=== PATIENT | male | born 1945 | race Caucasian/White ===

== ENCOUNTER 2016-09-23 10:10 | Observation (INO) ==
[2016-09-23] MEDS ORDERED: Ondansetron ODT 4 MG TAB.RAPDIS SL ONE (10:44)
--- NOTE | 2016-09-23 11:04 | Emergency Department Note ---
Disposition Clinical Impression: Vomiting, Ileus, Abdominal pain Disposition: Admitted As Inpatient Condition: Fair Referrals: Bo Eddy DO [Primary Care Provider] - Forms: ED Satisfaction Letter Time of Disposition: 14:30 (alistair bautista) Nausea/Vomiting/Diarrhea HPI - General Chief complaint: ED Nausea/Vomiting/Diarrhea Stated complaint: vomiting Time Seen by Provider: 09/23/16 10:17 Source: patient, family Mode of arrival: ambulatory Limitations: no limitations Nursing Notes Reviewed: Yes Vital Signs Reviewed: Yes - History of Present Illness HPI Narrative: he had an episode of diarrhea yesterday but has had nausea vomiting abdominal pain all day states that he is bloated distended feels very uncomfortable he is hard of hearing so it has if called were going to his to get most of the answers he has had no fevers no chills no lightheadedness or dizziness and denies any burning or stinging rash sores or lesions Pt Subjective Complaint: nausea, vomiting, abdominal pain Onset (ago): day(s) (1) Description of emesis: food contents Associated Abdominal Pain: Yes If pain, Location of pain: diffuse Radiation: diffuse Severity: moderate Severity scale (1-10): 4 Quality: cramping Consistency: intermittent Improves with: nothing Worsens with: eating Context: other (Due For colonoscopy) Associated symptoms: Reports: loss of appetite, malaise, nausea/vomiting. Denies: myalgias, chest pain, cough, diaphoresis, fever/chills, headaches, rash , dysuria, shortness of breath, syncope, weakness - Related Data Home Medications Medication Instructions Recorded Confirmed Atenolol 100 mg PO DAILY 08/30/15 08/18/16 CloNIDine HCl 0.1 mg PO BID 08/30/15 08/18/16 Esomeprazole Magnesium [Nexium] 40 mg PO QAM PRN 08/30/15 08/18/16 Losartan [Cozaar] 100 mg PO DAILY 08/30/15 08/18/16 Terazosin [Hytrin] 5 mg PO HS 08/30/15 08/18/16 Fluticasone/Salmeterol [Advair Hfa 2 puff IH BID 04/06/16 08/18/16 115-21 Mcg Inhaler] Gabapentin [Neurontin] 800 mg PO BID 04/06/16 08/18/16 Oxycodone HCl 5 mg PO Q6H PRN 04/06/16 08/18/16 Previous Rx's Medication Instructions Recorded PredniSONE [Deltasone] 20 mg PO DAILY #30 tablet 05/27/16 Allopurinol [Zyloprim] 100 mg PO DAILY #30 tablet 07/26/16 Phenytoin ER [Dilantin ER] 500 mg PO HS #150 capsule 07/26/16 Allergies Allergy/AdvReac Type Severity Reaction Status Date / Time No Known Allergies Allergy Verified 08/18/16 09:31 All systems ED: reviewed and negative except as stated. Constitutional: Reports: weakness. Denies: fever, chills Eyes: Denies: vision change ENT ED: Denies: ear pain, throat pain Cardiovascular: Denies: chest pain, palpitations Respiratory: Denies: cough, dyspnea Gastrointestinal: Reports: abdominal pain, nausea, vomiting Genitourinary: Denies: urgency, dysuria Musculoskeletal: Reports: back pain Integumentary: Denies: rash, abrasion Neurological: Reports: weakness. Denies: headache Psychiatric: Denies: anxiety Endocrine: Reports: fatigue Hematological/Lymphatic: Denies: easy bleeding Allergic/Immunologic: Denies: facial swelling Past Medical History - Past Medical History Attestation: Yes The following information was validated with the patient. Source: patient, old records reviewed, nursing notes reviewed Medical history: Reports: arthritis, cancer, COPD, GERD, hyperlipidemia, hypertension, RA, renal disease, seizures Surgical history: Reports: cancer surgery, orthopedic, other, other Psychiatric history: Reports: anxiety, depression - Social History Smoking Status: Former smoker Smokeless Tobacco Status: No Alcohol use: Reports: occasionally, heavy Drug use: Reports: none Physical Exam - General Limitations: no limitations General appearance: alert, in no apparent distress, anxious - Head Head exam: atraumatic, normocephalic, normal inspection - Eye Eye exam: Present: normal appearance, PERRL, EOMI - ENT ENT exam: normal exam, normal oropharynx, mucous membranes moist, TM's normal bilaterally, normal external ear exam - Neck Neck exam: Present: normal inspection, full ROM, trachea midline - Chest Chest inspection: Present: normal inspection, symmetric chest wall rise - Respiratory Respiratory exam: Present: normal lung sounds bilaterally - Cardiovascular Cardiovascular exam: Present: regular rate, normal rhythm, normal heart sounds - Abdominal Exam Abdominal exam: Present: soft, tenderness, distention, hypoactive bowel sounds. Absent: mass, pulsatile mass Abdominal tenderness: Present: diffuse, moderate - Expanded Upper Extremity Exam Shoulder exam: Present: normal inspection, full ROM Arm exam: Present: normal inspection, full ROM Elbow exam: Present: normal inspection, full ROM Forearm/Wrist exam: Present: normal inspection, full ROM Hand exam: Present: normal inspection, full ROM Vascular exam: Normal: capillary refill, radial pulse - Expanded Lower Extremity Exam Hip/Pelvis exam: Present: normal inspection, full ROM Upper leg exam: Present: normal inspection, full ROM Knee exam: Present: normal inspection, full ROM Lower leg exam: Present: normal inspection, full ROM Ankle exam: Present: normal inspection, full ROM Foot/toe exam: Present: normal inspection, full ROM Neurovascular/Tendon exam: Absent: motor deficit, sensory deficit, tendon deficit Gait: observed and normal - Back Exam Back exam: Present: normal inspection, full ROM. Absent: muscle spasm - Neurological Exam Neurological exam: Present: alert, oriented X3, CN II-XII intact, other ([place]) - Psychiatric Psychiatric exam: Present: normal affect, normal mood - Skin Skin exam: Present: warm, dry, intact, normal color Course Course Narrative: Patient was seen and examined patient was continuing to complain of abdominal epigastric pain cardiac workup was done we also did an abdominal workup which showed these got an ileus as a result patient be admitted transfer to the services of Dr. Tonny Steinberg [facility] paving stone installer for Dr. Calvillo - Reevaluation(s) Reevaluation #1: NG tube ordered Vital Signs Temperature 96.6 F L 09/23/16 10:12 Pulse Rate 85 09/23/16 10:12 Respiratory Rate 18 09/23/16 10:12 Blood Pressure 155/84 09/23/16 10:12 O2 Sat by Pulse Oximetry 98 09/23/16 10:12 Temperature 96.6 F L 09/23/16 10:14 Pulse Rate 75 09/23/16 15:30 Respiratory Rate 18 09/23/16 15:30 Blood Pressure 160/85 09/23/16 15:30 O2 Sat by Pulse Oximetry 97 09/23/16 15:30 Oxygen Delivery Oxygen Delivery Room Air Nausea/Vomiting/Diarrhea - Differential Diagnosis Likely: drug-induced nausea and vomitting, dehydration, bowel obstruction - Medical Records Medical records reviewed: Yes I reviewed the patient's medical records. - Lab Data Lab results reviewed: Yes I reviewed the patient's lab results. Result diagrams: 09/23/16 11:08 09/23/16 11:08 Lab Results 09/23/16 09/23/16 09/23/16 Range/Units 11:08 11:08 11:08 WBC 10.9 (4.3-11.1) K/mcL RBC 3.64 L (4.19-5.50) M/mcL Hgb 11.6 L (12.9-16.9) g/dL Hct 31.9 L (37.5-50.1) % MCV 87.6 (83.0-100.0) fL MCH 31.9 (28.0-33.3) pg MCHC 36.4 H (31.6-35.5) g/dL RDW 15.1 H (11.5-14.5) % Plt Count 162 (140-400) K/mcL MPV 10.1 (9.4-12.4) fL Immature Gran % 1.9 (0-4) % Seg Neutrophils % 72.7 % Lymphocytes % 13.4 % Monocytes % 10.5 % Eosinophils % 0.9 % Basophils % 0.6 % Neutrophils # 7.9 (1.6-8.9) K/mcL Lymphocytes # 1.5 (0.6-4.6) K/mcL Monocytes # 1.1 (0.0-1.3) K/mcL Eosinophils # 0.1 (0.0-0.6) K/mcL Basophils # 0.1 (0.0-0.2) K/mcL PT 11.7 (9.4-12.1) Seconds INR 1.1 APTT 25.6 L (26.0-36.0) Seconds Sodium 133 L (136-145) mEq/L Potassium 4.3 (3.5-4.5) mEq/L Chloride 100 (98-109) mEq/L Carbon Dioxide 22 (19-29) mEq/L BUN 15 (8-26) mg/dL Creatinine 1.21 (0.72-1.25) mg/dL Est GFR ( Amer) > 60 (> 60) Est GFR (Non-Af Amer) 59 L (> 60) BUN/Creatinine Ratio 12 (6-26) Glucose 114 H (70-99) mg/dL Calculated Osmolality 278 L (280-300) Calcium 8.9 (8.6-10.8) mg/dL Troponin I (0-0.03) ng/mL Urine Color (Yellow) Urine Clarity (Clear) Urine pH (5.0-8.0) pH Units Ur Specific [place] (1.010-1.025) Urine Protein (Neg-Trace) mg/dL Urine Glucose (UA) (Normal) mg/dL Urine Ketones (Negative) mg/dL Urine Blood (Negative) Urine Nitrite (Negative) Urine Bilirubin (Negative) Urine Urobilinogen (Normal) mg/dL Ur Leukocyte Esterase (Negative) Urine Microscopic RBC (0-3) per hpf Urine Microscopic WBC (0-3) per hpf Ur Squamous Epith Cells (None-Few) per lpf Hyaline Casts (None-Few) per lpf Granular Casts (None Seen) per lpf Urine Mucus (Few) Ur Culture Indicated? (NO) 09/23/16 09/23/16 Range/Units 11:08 13:40 WBC (4.3-11.1) K/mcL RBC (4.19-5.50) M/mcL Hgb (12.9-16.9) g/dL Hct (37.5-50.1) % MCV (83.0-100.0) fL MCH (28.0-33.3) pg MCHC (31.6-35.5) g/dL RDW (11.5-14.5) % Plt Count (140-400) K/mcL MPV (9.4-12.4) fL Immature Gran % (0-4) % Seg Neutrophils % % Lymphocytes % % Monocytes % % Eosinophils % % Basophils % % Neutrophils # (1.6-8.9) K/mcL Lymphocytes # (0.6-4.6) K/mcL Monocytes # (0.0-1.3) K/mcL Eosinophils # (0.0-0.6) K/mcL Basophils # (0.0-0.2) K/mcL PT (9.4-12.1) Seconds INR APTT (26.0-36.0) Seconds Sodium (136-145) mEq/L Potassium (3.5-4.5) mEq/L Chloride (98-109) mEq/L Carbon Dioxide (19-29) mEq/L BUN (8-26) mg/dL Creatinine (0.72-1.25) mg/dL Est GFR ( Amer) (> 60) Est GFR (Non-Af Amer) (> 60) BUN/Creatinine Ratio (6-26) Glucose (70-99) mg/dL Calculated Osmolality (280-300) Calcium (8.6-10.8) mg/dL Troponin I 0.01 (0-0.03) ng/mL Urine Color Yellow (Yellow) Urine Clarity Clear (Clear) Urine pH 6.0 (5.0-8.0) pH Units Ur Specific [place] 1.025 (1.010-1.025) Urine Protein 100 H (Neg-Trace) mg/dL Urine Glucose (UA) Normal (Normal) mg/dL Urine Ketones 15 H (Negative) mg/dL Urine Blood Trace-intact H (Negative) Urine Nitrite Negative (Negative) Urine Bilirubin Small H (Negative) Urine Urobilinogen Normal (Normal) mg/dL Ur Leukocyte Esterase Trace H (Negative) Urine Microscopic RBC 0-3 (0-3) per hpf Urine Microscopic WBC 5-15 H (0-3) per hpf Ur Squamous Epith Cells Few (None-Few) per lpf Hyaline Casts Moderate H (None-Few) per lpf Granular Casts Few H (None Seen) per lpf Urine Mucus Few (Few) Ur Culture Indicated? YES A (NO) - Radiology Data Radiology results reviewed: Yes I reviewed the patient's radiology results. ITS Impressions Chest X-Ray 09/23/16 10:44 IMPRESSION: No evidence of acute cardiopulmonary disease. D/ / Anup Coyne MD / Anup Coyne MD Interpreting Provider: Anup Coyne MD - EKG Data EKG attestation: Yes I reviewed and interpreted this EKG. EKG results narrative: Rhythm NSR Heart Rate 62 PA 171 QRS 101 QT 430 Axes 27 Critical Care Time Critical Care Time: No
[2016-09-23 11:16] LABS: Basophils # 0.1 K/mcL (0.0-0.2); Basophils % 0.6 %; Eosinophils # 0.1 K/mcL (0.0-0.6); Eosinophils % 0.9 %; Hematocrit 31.9 % (37.5-50.1); Hemoglobin 11.6 g/dL (12.9-16.9); Immature Granulocytes % 1.9 % (0-4); Lymphocytes # 1.5 K/mcL (0.6-4.6); Lymphocytes % 13.4 %; Mean Corpuscular HGB Conc 36.4 g/dL (31.6-35.5); Mean Corpuscular Hemoglobin 31.9 pg (28.0-33.3); Mean Corpuscular Volume 87.6 fL (83.0-100.0); Mean Platelet Volume 10.1 fL (9.4-12.4); Monocytes # 1.1 K/mcL (0.0-1.3); Monocytes % 10.5 %; Neutrophils # 7.9 K/mcL (1.6-8.9); Platelet Count 162 K/mcL (140-400); Red Blood Count 3.64 M/mcL (4.19-5.50); Red Cell Distribution Width 15.1 % (11.5-14.5); Segmented Neutrophils % 72.7 %
[2016-09-23 11:22] LABS: INR 1.1; Prothrombin Time 11.7 Seconds (9.4-12.1)
[2016-09-23 11:25] LABS: Activated Partial Thrombo Time 25.6 Seconds (26.0-36.0)
[2016-09-23 11:29] LABS: BUN/Creatinine Ratio 12 (6-26); Blood Urea Nitrogen 15 mg/dL (8-26); Calcium 8.9 mg/dL (8.6-10.8); Carbon Dioxide 22 mEq/L (19-29); Chloride 100 mEq/L (98-109); Glucose 114 mg/dL (70-99); Osmolality,Calculated 278 (280-300); Potassium 4.3 mEq/L (3.5-4.5); Sodium 133 mEq/L (136-145); eGFR For African Americans > 60 (> 60); eGFR For Non-African Americans 59 (> 60)
[2016-09-23] MEDS ORDERED: GI Cocktail 40 ML EACH PO ONE (12:04)
[2016-09-23 13:45] LABS: Bilirubin,Urine Small (Negative); Blood,Urine Trace-intact (Negative); Clarity,Urine Clear (Clear); Color,Urine Yellow (Yellow); Glucose,Urine (UA) Normal (Normal); Ketones,Urine 15 mg/dL (Negative); Leukocyte Esterase,Urine Trace (Negative); Nitrite,Urine Negative (Negative); Protein,Urine 100 mg/dL (Neg-Trace); Specific Gravity,Urine 1.025 (1.010-1.025); Urobilinogen,Urine Normal (Normal)
[2016-09-23 13:56] LABS: Granular Casts,Urine Few per lpf (None Seen); Hyaline Casts,Urine Moderate per lpf (None-Few); Mucus,Urine Few (Few); RBC,Urine 0-3 per hpf (0-3); Squamous Epithelial Cell,Urine Few per lpf (None-Few)
--- NOTE | 2016-09-23 16:06 | Electrocardiograph Report ---
[facility] Test Date: 2016-09-23 Pat Name: Christopher Clancy Department: [id number] Room: [facility] Gender: M Steel Buffer: [id number] : 1945 Requested By: Indira Montanez Order Number: [id number] Reading MD: Stacy Harmon Measurements Intervals [place] Rate: 62 P: 51 MD: 171 QRS: 27 QRSD: 101 T: 51 QT: 430 QTc: 436 Interpretive Statements SINUS RHYTHM POSSIBLE RIGHT VENTRICULAR CONDUCTION DELAY Electronically Signed On 09-23-16 16:05:17 EST by Stacy Harmon
[2016-09-23] MEDS ORDERED: Naloxone 0.4 MG/ML INJ IVP PRN (16:08)
[2016-09-23] MEDS ORDERED: *HR* Morphine 2 MG/ML SYRINGE IVP PRN (18:02)
[2016-09-23] MEDS ORDERED: Ketorolac 30 MG/ML VIAL IVP PRN (18:06)
[2016-09-23] MEDS: 0.9 % Sodium Chloride 1,000 ML IVC SCH (18:28)
[2016-09-23] MEDS ORDERED: Tetracaine/Benzocaine/Butamben 200MG/SPRAY (100SPY/BOT) MM ONE (20:36)
[2016-09-23] MEDS ORDERED: Lidocaine Viscous Oral Soln 15 ML SOLUTION MM PRN (20:50)
[2016-09-23] MEDS: Budesonide/Formoterol 80/4.5 MDI IH SCH (22:19)
[2016-09-24] MEDS ORDERED: Ketorolac 30 MG/ML VIAL IVP SCH
[2016-09-24] MEDS: 0.9 % Sodium Chloride 1,000 ML IVC SCH ×2 (03:28→13:37)
[2016-09-24 06:54] LABS: Basophils % 0.4 %; Eosinophils # 0.1 K/mcL (0.0-0.6); Eosinophils % 0.6 %; Hematocrit 29.8 % (37.5-50.1); Hemoglobin 10.6 g/dL (12.9-16.9); Immature Granulocytes % 1.6 % (0-4); Lymphocytes # 2.7 K/mcL (0.6-4.6); Lymphocytes % 24.5 %; Mean Corpuscular HGB Conc 35.6 g/dL (31.6-35.5); Mean Corpuscular Hemoglobin 31.7 pg (28.0-33.3); Mean Corpuscular Volume 89.2 fL (83.0-100.0); Mean Platelet Volume 11.1 fL (9.4-12.4); Neutrophils # 7.2 K/mcL (1.6-8.9); Platelet Count 165 K/mcL (140-400); Red Blood Count 3.34 M/mcL (4.19-5.50); Red Cell Distribution Width 14.9 % (11.5-14.5); Segmented Neutrophils % 63.9 %
[2016-09-24 06:56] LABS: INR 1.1; Prothrombin Time 11.6 Seconds (9.4-12.1)
[2016-09-24 06:58] LABS: Activated Partial Thrombo Time 25.2 Seconds (26.0-36.0)
[2016-09-24 07:05] LABS: BUN/Creatinine Ratio 16 (6-26); Blood Urea Nitrogen 19 mg/dL (8-26); Calcium 8.7 mg/dL (8.6-10.8); Carbon Dioxide 19 mEq/L (19-29); Chloride 105 mEq/L (98-109); Glucose 99 mg/dL (70-99); Osmolality,Calculated 286 (280-300); Potassium 4.1 mEq/L (3.5-4.5); Sodium 137 mEq/L (136-145); eGFR For African Americans > 60 (> 60); eGFR For Non-African Americans 60 (> 60)
[2016-09-24] MEDS ORDERED: PredniSONE 20 MG TABLET PO SCH (09:00)
[2016-09-24] MEDS: Budesonide/Formoterol 80/4.5 MDI IH SCH (09:10)
[2016-09-24 15:11] VITALS: BP 162/86
--- NOTE | 2016-09-24 15:17 | Internal Med History&Physical ---
Date of Encounter: 09/24/16 Time of Encounter: 15:14 Assessment and Plan (1) Ileus Current visit: Yes Status: Acute Today's KUB showed no obstruction which is an improvement from the ileus shown yesterday with advance his diet clear liquids if he tolerates that he can go home (2) Vomiting Current visit: Yes Status: Acute no current vomiting Qualifiers: Vomiting type: unspecified Vomiting Intractability: unspecified Nausea presence: with nausea Qualified Code(s): R11.2 - Nausea with vomiting, unspecified (3) Anemia Current visit: No Status: Chronic Hemoglobin dropped from 11.6-10.6 probably dilutional Qualifiers: Anemia type: unspecified type Qualified Code(s): D64.9 - Anemia, unspecified (4) High blood pressure Current visit: No Status: Chronic Blood pressures stable Qualifiers: Hypertension type: essential hypertension Qualified Code(s): I10 - Essential (primary) hypertension (5) Seizure Current visit: No Status: Chronic No seizure activity by do recommend he does not use alcohol or caffeine Internal Medicine - H&P: HPI Chief complaint: Nausea and vomiting Admitted From: Emergency Dept Plans for Post Hospital Care: Home History of present illness: Mr. Clancy is a 70 year old male presented to emergency room after a decreased appetite for 7 days and stopped eating and drinking for 3 days became concerned about to the ER. He has hard hearing apparently 10%. Information was obtained mainly from his noted he did answer some questions. He reports having no BM in 3 days he felt weak and fatigued he has had sharp chest pain comes and goes his a little more short of breath continues to have tinnitus in his ears and ongoing. He had some nausea and vomiting and some diarrhea. He did not notice any blood in his ureter stool but he did notice leading when he had an NG tube down. It was going down his back of his throat and gag and took NG tube out. He was in the emergency room by Dr. Indira Montanez and the workup showed only dilated loops of small bowel which is consistent with ileus. He was admitted for IV hydration, NG tube, nothing by mouth. I saw him the next day and his repeat KUB came back with no obstruction. His white count was slightly up at 11.2 hemoglobin was slightly down 10.6. Urine culture came back no growth. Currently he has no nausea vomiting chest pain is usual shortness of breath no blood in his stool rest review of systems negative answers questions and addressed his concerns the plan is if he can tolerate fluids and he can be discharged night if he cannot will have to make him nothing by mouth and keep him here. Past Med Surg Social Fam HX - Past Medical History Medical history: arthritis, cancer (Vocal cords, treated with radiation but no surgery), COPD, GERD, hyperlipidemia, hypertension, RA, renal disease, seizures , other (Heart appearing about 10% remaining, lumbar fracture history, ventral hernias) Psychiatric history: anxiety, depression - Past Surgical History Surgical History: orthopedic, other (Plates in his lumbar area) - Social History Smoking Status: Former smoker (About a 40 pack year history quit to 4 years ago recommended consider lung cancer screening and he now has a program for that) Smokeless Tobacco Status: No Alcohol use: occasionally (Recommend no alcohol since he has seizure disorder, he drinks about 2-3 beer a day episodically), heavy Drug use: other (2 cups of coffee a day, insert caffeine use) - Family History Father Adopted: No Family Member Ethnicity: Non- Living Status: (Pneumonia) Hx Family Cancer: Yes (Pancreatic Cancer) Mother Adopted: No Family Member Ethnicity: Non- Living Status: (Pancreatic cancer) Internal Medicine - H&P: Meds Atenolol 100 mg PO DAILY 08/30/15 [History] CloNIDine HCl 0.1 mg PO BID 08/30/15 [History] Esomeprazole Magnesium [Nexium] 40 mg PO QAM PRN 08/30/15 [History] Losartan [Cozaar] 100 mg PO DAILY 08/30/15 [History] Terazosin [Hytrin] 5 mg PO HS 08/30/15 [History] Fluticasone/Salmeterol [Advair Hfa 115-21 Mcg Inhaler] 2 puff IH BID 04/06/16 [ History] Gabapentin [Neurontin] 800 mg PO BID 04/06/16 [History] Oxycodone HCl 5 mg PO Q6H PRN 04/06/16 [History] PredniSONE [Deltasone] 20 mg PO DAILY #30 tablet 05/27/16 [Rx] Allopurinol [Zyloprim] 100 mg PO DAILY #30 tablet 07/26/16 [Rx] Phenytoin ER [Dilantin ER] 500 mg PO HS #150 capsule 07/26/16 [Rx] Allergies No Known Allergies Allergy (Verified 08/18/16 09:31) All Systems PM: A 10-system review of systems was performed and is negative for pertinent findings except as documented above in the HPI. - Constitutional Vitals: Temp Pulse Resp BP Pulse Ox 97.4 F L 84 16 162/86 98 09/24/16 15:08 09/24/16 15:08 09/24/16 15:08 09/24/16 15:08 09/24/16 15:08 - Head Head exam: Present: atraumatic, normocephalic - Eye Eye exam: Present: PERRL, conjuntiva pink, sclera anicteric Pupils: Present: PERRL - Neck Neck exam general surgery: Present: supple, trachea midline. Absent: lymphadenopathy - Respiratory Respiratory exam: Present: CTAB. Absent: accessory muscle use, rales, rhonchi, wheezes - Cardiovascular Cardiovascular exam: Present: RRR, +S1, +S2. Absent: diastolic murmur, gallop, rubs, systolic murmur - GI/Abdominal GI/Abdominal exam: Present: normal bowel sounds, soft, no peritoneal signs. Absent: distended, tenderness - Extremities Exam Extremities exam: Present: warm. Absent: calf tenderness, cyanotic, pedal edema - Neurological Exam Neurological exam: Present: CN II-XII intact, oriented X3, no focal deficits. Absent: pronater drift, facial droop, speech deficit - Skin Skin exam: Present: dry, intact Internal Med - H&P Results - Labs CBC & Chem 7: 09/24/16 06:30 09/24/16 06:30 Labs: Short CBC 09/24/16 Range/Units 06:30 WBC 11.2 H (4.3-11.1) K/mcL Hgb 10.6 L (12.9-16.9) g/dL Hct 29.8 L (37.5-50.1) % Plt Count 165 (140-400) K/mcL Neutrophils # 7.2 (1.6-8.9) K/mcL BMP 09/24/16 06:30 Sodium 137 Potassium 4.1 Chloride 105 Carbon Dioxide 19 BUN 19 Creatinine 1.20 Glucose 99 Calcium 8.7 - Impressions ITS Impressions Abdomen X-Ray 09/24/16 08:00 IMPRESSION: No evidence of bowel obstruction. D/ / 09/24/2016 08:29:03 Jagdish Haider MD / jacqui Interpreting Provider: Jagdish Haider MD
--- NOTE | 2016-09-24 16:21 | Discharge Summary ---
Date of Encounter: 09/24/16 Time of Encounter: 16:04 - Discharge Diagnosis (1) Ileus Priority: Primary Status: Acute Comments: Ileus has resolved patient tolerating liquids, wanting and ready to go home (2) Vomiting Priority: Primary Status: Acute Comments: No current vomiting Qualifiers: Vomiting type: unspecified Vomiting Intractability: unspecified Nausea presence: with nausea Qualified Code(s): R11.2 - Nausea with vomiting, unspecified (3) Anemia Priority: Secondary Status: Chronic Comments: Shelbi globin Dropped a little bit as probably delusional Qualifiers: Anemia type: unspecified type Qualified Code(s): D64.9 - Anemia, unspecified (4) High blood pressure Priority: Secondary Status: Chronic Comments: Stable on the hospital Qualifiers: Hypertension type: essential hypertension Qualified Code(s): I10 - Essential (primary) hypertension (5) Seizure Priority: Secondary Status: Chronic Comments: No seizure activity while in the hospital - Discharge Medications Home Medications: Atenolol 100 mg PO DAILY 08/30/15 [History] CloNIDine HCl 0.1 mg PO BID 08/30/15 [History] Esomeprazole Magnesium [Nexium] 40 mg PO QAM PRN 08/30/15 [History] Losartan [Cozaar] 100 mg PO DAILY 08/30/15 [History] Terazosin [Hytrin] 5 mg PO HS 08/30/15 [History] Fluticasone/Salmeterol [Advair Hfa 115-21 Mcg Inhaler] 2 puff IH BID 04/06/16 [ History] Gabapentin [Neurontin] 800 mg PO BID 04/06/16 [History] Oxycodone HCl 5 mg PO Q6H PRN 04/06/16 [History] PredniSONE [Deltasone] 20 mg PO DAILY #30 tablet 05/27/16 [Rx] Allopurinol [Zyloprim] 100 mg PO DAILY #30 tablet 07/26/16 [Rx] Phenytoin ER [Dilantin ER] 500 mg PO HS #150 capsule 07/26/16 [Rx] Allergies/Adverse Reactions: Allergies No Known Allergies Allergy (Verified 08/18/16 09:31) Date of admission: 09/23/16 15:55 Primary care physician: Bo Eddy Discharging clinician: Tonny Taylor date of discharge: 09/24/16 - Patient Status Disposition: Home, Self-Care Condition: Fair Functional capacity at discharge: independent ambulation Overall status at discharge: patient is back to baseline - Discharge Instructions Follow Up With: Bo Eddy DO [Primary Care Provider] - 1 week - Diet and Activity Activity: resume usual activities as tolerated Diet: advance to your usual diet Hospital course: Mr. Clancy is a 70 year old male presents to emergency room with 7 days and premature eating or drinking for 3 days. Found to have a mild ileus and was put on IV hydration and nothing by mouth, NG tube was put down by he removed it because nose bleeding was gagging him. The KUB showed that his ileus had resolved he was able tolerate fluids before discharge. She had no chest pain shortness breath for discharge to his questions were answered concerns addressed - Time Spent with Patient Total time spent providing and/or coordinating discharge services: Greater than 30 minutes - Constitutional Vitals: Temp Pulse Resp BP Pulse Ox 97.4 F L 84 16 162/86 98 09/24/16 15:08 09/24/16 15:08 09/24/16 15:08 09/24/16 15:08 09/24/16 15:08 Exam: General: Alert and oriented, no acute distress Lungs: Clear to auscultation bilaterally without wheezing or crackles Heart: Regular rate and rythms without murmer or rubs Abdomen: Soft, nontender, Extremities: no edema, redness
== END 2016-09-24 16:58 | disposition home or self-care (01) ==
LOC: INPPIK 10:10 → EMEROOPIK 10:10 → INPPIK 16:11
PROVIDERS: ADMIT Internal Medicine; ATTEND Internal Medicine

== ENCOUNTER 2019-06-16 09:50 | Observation (INO) ==
[2019-06-16] MEDS ORDERED: 0.9 % Sodium Chloride 1,000 ML IVC ONE (10:12)
[2019-06-16 10:57] LABS: Basophils % 0.3 %; Eosinophils # 0.1 K/mcL (0.0-0.6); Eosinophils % 0.6 %; Hematocrit 31.3 % (37.5-50.1); Hemoglobin 10.8 g/dL (12.9-16.9); Immature Granulocytes % 3.3 % (0-4); Lymphocytes # 1.3 K/mcL (0.6-4.6); Lymphocytes % 10.5 %; Mean Corpuscular HGB Conc 34.5 g/dL (31.6-35.5); Mean Corpuscular Hemoglobin 31.4 pg (28.0-33.3); Mean Platelet Volume 10.2 fL (9.4-12.4); Monocytes # 1.5 K/mcL (0.0-1.3); Neutrophils # 9.2 K/mcL (1.6-8.9); Platelet Count 168 K/mcL (140-400); Red Blood Count 3.44 M/mcL (4.19-5.50); Red Cell Distribution Width 15.8 % (11.5-14.5); Segmented Neutrophils % 73.3 %; White Blood Count 12.5 K/mcL (4.3-11.1)
[2019-06-16 11:26] LABS: Bilirubin,Urine Negative (Negative); Blood,Urine Trace-intact (Negative); Clarity,Urine Clear (Clear); Glucose,Urine (UA) Normal (Normal); Ketones,Urine Negative (Negative); Leukocyte Esterase,Urine Negative (Negative); Nitrite,Urine Negative (Negative); Protein,Urine Negative (Neg-Trace); Urobilinogen,Urine Normal (Normal)
[2019-06-16 11:27] LABS: Color,Urine Light Yellow (Yellow)
[2019-06-16] MEDS ORDERED: *HR* LORazepam 2 MG/ML VIAL ONE (11:30)
[2019-06-16 11:36] LABS: Bacteria,Urine None Seen per hpf (None-Few); RBC,Urine 0-3 per hpf (0-3); Squamous Epithelial Cell,Urine Few per lpf (None-Few)
[2019-06-16] MEDS ORDERED: *HR* LORazepam 2 MG/ML VIAL IVP ONE ×2 (12:03→14:27)
[2019-06-16 12:05] LABS: Alanine Aminotransferase 9 Units/L (7-52); Albumin 3.9 g/dL (3.5-5.7); Albumin/Globulin Ratio 1.4 (1.1-2.2); Alkaline Phosphatase 70 Units/L (34-104); Aspartate Amino Transferase 11 Units/L (13-39); BUN/Creatinine Ratio 12 (6-26); Bilirubin,Direct 0.2 mg/dL (0.0-0.2); Bilirubin,Indirect 0.5 mg/dL (0.0-1.2); Bilirubin,Total 0.7 mg/dL (0.3-1.0); Blood Urea Nitrogen 15 mg/dL (8-23); Calcium 8.9 mg/dL (8.6-10.3); Carbon Dioxide 25 mEq/L (23-29); Chloride 97 mEq/L (98-107); Globulin 2.8 g/dL (2.4-3.5); Glucose 131 mg/dL (70-105); Osmolality,Calculated 277 (280-300); Potassium 3.9 mEq/L (3.5-5.1); Sodium 132 mEq/L (136-145); Total Protein 6.7 g/dL (6.4-8.9); eGFR For African Americans > 60 (> 60); eGFR For Non-African Americans 58 (> 60)
[2019-06-16] MEDS ORDERED: Albuterol 2.5 MG/3 ML NEBULIZER IH PRN (15:15)
[2019-06-16] MEDS ORDERED: 0.9 % Sodium Chloride 1,000 ML IVC SCH (15:15)
[2019-06-16] MEDS ORDERED: Naloxone 0.4 MG/ML INJ IVP PRN (15:15)
[2019-06-16] MEDS ORDERED: Ondansetron ODT 4 MG TAB.RAPDIS SL PRN (18:00)
[2019-06-16] MEDS: Gabapentin 300 MG CAPSULE PO SCH ×2 (18:16→20:42)
[2019-06-16] MEDS: 0.9 % Sodium Chloride w KCl 20 MEQ/1,000 ML MLS IVC SCH (18:48)
[2019-06-16] MEDS: cloNIDine HCl 0.1 MG TABLET PO SCH (20:42)
[2019-06-16] MEDS: levETIRAcetam 250 MG TABLET PO SCH (20:43)
[2019-06-16] MEDS: *HR* LORazepam 2 MG/ML VIAL IVP PRN (20:53)
[2019-06-16] MEDS: Neosporin OINT 15 GM TUBE TP SCH (20:53)
[2019-06-16] MEDS: Budesonide/Formoterol 80/4.5 1 PUFF INH IH SCH (21:22)
[2019-06-16] MEDS ORDERED: *HR* Metoprolol 5 MG/5 ML VIAL IVP ONE (22:03)
[2019-06-17] MEDS ORDERED: *HR* Metoprolol 5 MG/5 ML VIAL IVP ONE (05:23)
[2019-06-17] MEDS: 0.9 % Sodium Chloride w KCl 20 MEQ/1,000 ML MLS IVC SCH (05:58)
[2019-06-17] MEDS ORDERED: *HR* Enoxaparin 40 MG/0.4 ML SYRINGE SQ SCH (06:00)
[2019-06-17 07:39] LABS: Basophils # 0.1 K/mcL (0.0-0.2); Basophils % 0.3 %; Eosinophils # 0.1 K/mcL (0.0-0.6); Eosinophils % 0.3 %; Hematocrit 30.3 % (37.5-50.1); Hemoglobin 10.6 g/dL (12.9-16.9); Immature Granulocytes % 2.3 % (0-4); Lymphocytes # 1.4 K/mcL (0.6-4.6); Lymphocytes % 9.2 %; Mean Corpuscular Hemoglobin 31.6 pg (28.0-33.3); Mean Corpuscular Volume 90.4 fL (83.0-100.0); Mean Platelet Volume 10.7 fL (9.4-12.4); Monocytes # 1.9 K/mcL (0.0-1.3); Monocytes % 12.7 %; Neutrophils # 11.4 K/mcL (1.6-8.9); Platelet Count 180 K/mcL (140-400); Red Blood Count 3.35 M/mcL (4.19-5.50); Red Cell Distribution Width 15.7 % (11.5-14.5); Segmented Neutrophils % 75.2 %; White Blood Count 15.1 K/mcL (4.3-11.1)
[2019-06-17] MEDS: levETIRAcetam 250 MG TABLET PO SCH (07:57)
[2019-06-17] MEDS: Gabapentin 300 MG CAPSULE PO SCH (07:58)
[2019-06-17] MEDS: cloNIDine HCl 0.1 MG TABLET PO SCH (07:58)
[2019-06-17] MEDS: *HR* LORazepam 2 MG/ML VIAL IVP PRN (07:58)
[2019-06-17] MEDS: Neosporin OINT 15 GM TUBE TP SCH (07:59)
[2019-06-17 08:48] LABS: BUN/Creatinine Ratio 11 (6-26); Blood Urea Nitrogen 13 mg/dL (8-23); Calcium 8.6 mg/dL (8.6-10.3); Carbon Dioxide 21 mEq/L (23-29); Chloride 99 mEq/L (98-107); Glucose 108 mg/dL (70-105); Osmolality,Calculated 273 (280-300); Potassium 3.8 mEq/L (3.5-5.1); Sodium 131 mEq/L (136-145); eGFR For African Americans > 60 (> 60); eGFR For Non-African Americans > 60 (> 60)
[2019-06-17] MEDS ORDERED: Famotidine 20 MG TABLET PO SCH (09:00)
[2019-06-17 09:48] VITALS: BP 121/73
[2019-06-17] MEDS ORDERED: FLU Vac QV 19-20 (6Month+)/PF 0.5 ML SYRINGE IM ONE (09:55)
[2019-06-17] MEDS: Budesonide/Formoterol 80/4.5 1 PUFF INH IH SCH (10:00)
== END 2019-06-17 11:26 | disposition home or self-care (01) ==
LOC: INPPIK 09:50 → EMEROOPIK 09:50 → INPPIK 15:46
PROVIDERS: ADMIT Internal Medicine; ATTEND Internal Medicine

== ENCOUNTER 2020-10-30 13:20 | Inpatient (IN) ==
[2020-10-30] MEDS ORDERED: 0.9 % Sodium Chloride 1,000 ML IVC ONE (13:48)
[2020-10-30] MEDS ORDERED: Ondansetron 4 MG/2 ML VIAL IVP ONE (13:48)
[2020-10-30 14:21] LABS: Basophils % 0.3 %; Eosinophils # 0.1 K/mcL (0.0-0.6); Eosinophils % 0.8 %; Hematocrit 24.2 % (37.5-50.1); Hemoglobin 8.4 g/dL (12.9-16.9); Immature Granulocytes % 1.5 % (0-4); Lymphocytes # 1.3 K/mcL (0.6-4.6); Mean Corpuscular HGB Conc 34.7 g/dL (31.6-35.5); Mean Corpuscular Hemoglobin 30.1 pg (28.0-33.3); Mean Corpuscular Volume 86.7 fL (83.0-100.0); Mean Platelet Volume 10.1 fL (9.4-12.4); Monocytes # 0.8 K/mcL (0.0-1.3); Monocytes % 9.7 %; Neutrophils # 6.3 K/mcL (1.6-8.9); Platelet Count 304 K/mcL (140-400); Red Blood Count 2.79 M/mcL (4.19-5.50); Red Cell Distribution Width 15.4 % (11.5-14.5); Segmented Neutrophils % 72.7 %; White Blood Count 8.7 K/mcL (4.3-11.1)
[2020-10-30 14:28] LABS: VBG HCO3 21 mEq/L (21-27); VBG PCO2 41 mmHg (41-51); VBG PH 7.32 pH Units (7.32-7.42); VBG PO2 31 mmHg (25-50)
[2020-10-30 14:48] LABS: Alanine Aminotransferase 7 Units/L (7-52); Albumin 3.8 g/dL (3.5-5.7); Albumin/Globulin Ratio 1.2 (1.1-2.2); Alkaline Phosphatase 81 Units/L (34-104); Aspartate Amino Transferase 10 Units/L (13-39); BUN/Creatinine Ratio 7 (6-26); Bilirubin,Direct 0.1 mg/dL (0.0-0.2); Bilirubin,Indirect 0.5 mg/dL (0.0-1.0); Bilirubin,Total 0.6 mg/dL (0.3-1.0); Blood Urea Nitrogen 10 mg/dL (8-23); Calcium 9.1 mg/dL (8.6-10.3); Carbon Dioxide 21 mEq/L (23-29); Chloride 92 mEq/L (98-107); Globulin 3.1 g/dL (2.4-3.5); Glucose 113 mg/dL (70-105); Lipase 53 Units/L (11-82); Osmolality,Calculated 260 (280-300); Potassium 4.3 mEq/L (3.5-5.1); Sodium 125 mEq/L (136-145); Total Protein 6.9 g/dL (6.4-8.9); Troponin I < 0.03 ng/mL (< 0.04); eGFR For African Americans 56 (> 60); eGFR For Non-African Americans 46 (> 60)
[2020-10-30] MEDS ORDERED: Azithromycin 500 MG in 0.9 % Sodium Chloride 250 ML IVPB ONE (14:54)
[2020-10-30] MEDS ORDERED: Acetaminophen 325 MG TABLET PO PRN (17:43)
[2020-10-30] MEDS ORDERED: MOM Conc 10 ML UD.LIQ PO PRN (17:43)
[2020-10-30] MEDS ORDERED: Ondansetron 4 MG/2 ML VIAL IVP PRN (17:43)
[2020-10-30] MEDS ORDERED: Mag Hydrox/Al Hydrox/Simeth 30 ML UDC PO PRN (17:43)
[2020-10-30] MEDS ORDERED: Naloxone 0.4 MG/ML INJ IVP PRN (17:43)
[2020-10-30] MEDS ORDERED: Melatonin 3 MG TABLET PO PRN (17:43)
[2020-10-30] MEDS: 0.9 % Sodium Chloride 1,000 ML IVC SCH (18:49)
[2020-10-30] MEDS: cloNIDine HCL 0.1 MG TABLET PO SCH (18:49)
[2020-10-30] MEDS: Gabapentin 400 MG CAPSULE PO SCH (19:36)
[2020-10-30] MEDS: Famotidine 20 MG TABLET PO SCH (19:36)
[2020-10-30] MEDS: levETIRAcetam 250 MG TABLET PO SCH (19:36)
[2020-10-30] MEDS: Ipratropium/Albuterol Neb 3 ML IH SCH (21:47)
[2020-10-30] MEDS: Budesonide/Formoterol 80/4.5 1 PUFF INH IH SCH (21:47)
[2020-10-30] MEDS: MethylPREDNISolone 40 MG/ML VIAL IVP SCH (23:33)
[2020-10-30] MEDS: Piperacillin/Tazobactam 3.375 GM in 0.9 % Sodium Chloride Mini Bag 100 ML IVPB SCH (23:34)
[2020-10-31] MEDS: cloNIDine HCL 0.1 MG TABLET PO SCH ×3 (02:29→17:59)
[2020-10-31] MEDS: Ipratropium/Albuterol Neb 3 ML IH SCH ×4 (04:25→21:43)
[2020-10-31] MEDS ORDERED: *HR* Enoxaparin 30 MG/0.3 ML SYRINGE SQ SCH (06:00)
[2020-10-31] MEDS: 0.9 % Sodium Chloride 1,000 ML IVC SCH (06:04)
[2020-10-31 06:51] LABS: Basophils % 0.4 %; Hematocrit 21.2 % (37.5-50.1); Hemoglobin 7.2 g/dL (12.9-16.9); Immature Granulocytes % 1.6 % (0-4); Lymphocytes # 0.4 K/mcL (0.6-4.6); Lymphocytes % 8.4 %; Mean Corpuscular Hemoglobin 30.3 pg (28.0-33.3); Mean Corpuscular Volume 89.1 fL (83.0-100.0); Mean Platelet Volume 9.8 fL (9.4-12.4); Monocytes # 0.1 K/mcL (0.0-1.3); Monocytes % 1.6 %; Neutrophils # 4.4 K/mcL (1.6-8.9); Platelet Count 244 K/mcL (140-400); Red Blood Count 2.38 M/mcL (4.19-5.50); Red Cell Distribution Width 15.8 % (11.5-14.5)
[2020-10-31 07:14] LABS: BUN/Creatinine Ratio 8 (6-26); Blood Urea Nitrogen 11 mg/dL (8-23); Calcium 8.2 mg/dL (8.6-10.3); Carbon Dioxide 19 mEq/L (23-29); Chloride 98 mEq/L (98-107); Glucose 129 mg/dL (70-105); Osmolality,Calculated 265 (280-300); Potassium 4.7 mEq/L (3.5-5.1); Sodium 127 mEq/L (136-145); eGFR For African Americans > 60 (> 60); eGFR For Non-African Americans 50 (> 60)
[2020-10-31] MEDS: Piperacillin/Tazobactam 3.375 GM in 0.9 % Sodium Chloride Mini Bag 100 ML IVPB SCH ×2 (08:42→16:44)
[2020-10-31] MEDS: levETIRAcetam 250 MG TABLET PO SCH ×2 (08:45→21:05)
[2020-10-31] MEDS: atenoloL 50 MG TABLET PO SCH (08:45)
[2020-10-31] MEDS: Gabapentin 400 MG CAPSULE PO SCH ×3 (08:45→21:06)
[2020-10-31] MEDS: MethylPREDNISolone 40 MG/ML VIAL IVP SCH ×2 (08:45→21:06)
[2020-10-31] MEDS: Budesonide/Formoterol 80/4.5 1 PUFF INH IH SCH ×2 (09:44→21:42)
[2020-10-31] MEDS: Famotidine 20 MG TABLET PO SCH (21:06)
[2020-11-01] MEDS: Piperacillin/Tazobactam 3.375 GM in 0.9 % Sodium Chloride Mini Bag 100 ML IVPB SCH ×3 (00:19→17:10)
[2020-11-01] MEDS: cloNIDine HCL 0.1 MG TABLET PO SCH ×3 (02:14→16:46)
[2020-11-01] MEDS: Ipratropium/Albuterol Neb 3 ML IH SCH ×4 (04:42→22:30)
[2020-11-01] MEDS ORDERED: *HR* Enoxaparin 40 MG/0.4 ML SYRINGE SQ SCH (06:00)
[2020-11-01 08:05] LABS: Basophils % 0.3 %; Hematocrit 18.8 % (37.5-50.1); Hemoglobin 6.4 g/dL (12.9-16.9); Immature Granulocytes % 2.2 % (0-4); Lymphocytes # 0.5 K/mcL (0.6-4.6); Mean Corpuscular Hemoglobin 30.5 pg (28.0-33.3); Mean Corpuscular Volume 89.5 fL (83.0-100.0); Mean Platelet Volume 9.9 fL (9.4-12.4); Monocytes # 0.2 K/mcL (0.0-1.3); Monocytes % 3.8 %; Neutrophils # 5.5 K/mcL (1.6-8.9); Platelet Count 202 K/mcL (140-400); Red Cell Distribution Width 15.4 % (11.5-14.5); Segmented Neutrophils % 85.7 %; White Blood Count 6.4 K/mcL (4.3-11.1)
[2020-11-01 08:21] LABS: Calcium 8.5 mg/dL (8.6-10.3); Potassium 4.2 mEq/L (3.5-5.1)
[2020-11-01] MEDS: MethylPREDNISolone 40 MG/ML VIAL IVP SCH ×2 (09:08→20:49)
[2020-11-01] MEDS: atenoloL 50 MG TABLET PO SCH (09:08)
[2020-11-01] MEDS: Gabapentin 400 MG CAPSULE PO SCH ×3 (09:08→20:48)
[2020-11-01] MEDS: levETIRAcetam 250 MG TABLET PO SCH ×2 (09:08→20:48)
[2020-11-01] MEDS ORDERED: 0.9 % Sodium Chloride 250 ML IVC SCH (09:15)
[2020-11-01] MEDS: Budesonide/Formoterol 80/4.5 1 PUFF INH IH SCH ×2 (09:22→22:30)
[2020-11-01] MEDS ORDERED: *HR* LORazepam 2 MG/ML VIAL IVP PRN ×2 (16:27→18:22)
[2020-11-01] MEDS: *HR* LORazepam 0.5 MG TABLET PO PRN (16:46)
[2020-11-01] MEDS: Famotidine 20 MG TABLET PO SCH (20:49)
[2020-11-02] MEDS: Piperacillin/Tazobactam 3.375 GM in 0.9 % Sodium Chloride Mini Bag 100 ML IVPB SCH ×2 (00:33→09:46)
[2020-11-02] MEDS: cloNIDine HCL 0.1 MG TABLET PO SCH ×2 (02:00→09:45)
[2020-11-02] MEDS: Ipratropium/Albuterol Neb 3 ML IH SCH ×2 (04:58→09:20)
[2020-11-02 06:33] VITALS: BP 168/80
[2020-11-02 08:48] LABS: Basophils # 0.1 K/mcL (0.0-0.2); Basophils % 0.6 %; Hematocrit 24.8 % (37.5-50.1); Hemoglobin 8.3 g/dL (12.9-16.9); Immature Granulocytes % 2.6 % (0-4); Lymphocytes # 0.5 K/mcL (0.6-4.6); Lymphocytes % 4.6 %; Mean Corpuscular HGB Conc 33.5 g/dL (31.6-35.5); Mean Corpuscular Hemoglobin 29.5 pg (28.0-33.3); Mean Corpuscular Volume 88.3 fL (83.0-100.0); Mean Platelet Volume 10.3 fL (9.4-12.4); Monocytes # 0.5 K/mcL (0.0-1.3); Monocytes % 4.7 %; Neutrophils # 9.9 K/mcL (1.6-8.9); Platelet Count 178 K/mcL (140-400); Red Blood Count 2.81 M/mcL (4.19-5.50); Red Cell Distribution Width 16.4 % (11.5-14.5); Segmented Neutrophils % 87.5 %; White Blood Count 11.3 K/mcL (4.3-11.1)
[2020-11-02] MEDS ORDERED: Folic Acid 1 MG TABLET PO SCH (09:00)
[2020-11-02] MEDS ORDERED: Thiamine (B-1) 100 MG TABLET PO SCH (09:00)
[2020-11-02] MEDS ORDERED: Vitamin B Complex/Vit C/Vit E 1 EACH TABLET PO SCH (09:00)
[2020-11-02 09:08] LABS: Calcium 8.4 mg/dL (8.6-10.3); Potassium 3.9 mEq/L (3.5-5.1)
[2020-11-02] MEDS: Budesonide/Formoterol 80/4.5 1 PUFF INH IH SCH (09:20)
[2020-11-02] MEDS: Gabapentin 400 MG CAPSULE PO SCH ×2 (09:45→14:12)
[2020-11-02] MEDS: levETIRAcetam 250 MG TABLET PO SCH (09:45)
[2020-11-02] MEDS: MethylPREDNISolone 40 MG/ML VIAL IVP SCH (09:46)
[2020-11-02] MEDS: atenoloL 50 MG TABLET PO SCH (09:46)
[2020-11-02] MEDS: *HR* LORazepam 0.5 MG TABLET PO PRN (09:59)
== END 2020-11-02 15:25 | disposition home or self-care (01) | DRG 178 ==
LOC: INPPIK 13:20 → EMEROOPIK 13:20 → INPPIK 17:48
PROVIDERS: ADMIT Internal Medicine; ATTEND Internal Medicine

== ENCOUNTER 2021-03-26 08:03 | Inpatient (IN) ==
[2021-03-26] MEDS ORDERED: *HR* LORazepam 2 MG/ML VIAL IVP ONE (08:22)
[2021-03-26] MEDS ORDERED: 0.9 % Sodium Chloride 1,000 ML IVC ONE (08:22)
[2021-03-26 08:45] LABS: Basophils # 0.1 K/mcL (0.0-0.2); Basophils % 0.4 %; Immature Granulocytes % 3.8 % (0-4); Lymphocytes # 0.8 K/mcL (0.6-4.6); Lymphocytes % 3.5 %; Mean Corpuscular HGB Conc 36.7 g/dL (31.6-35.5); Mean Corpuscular Hemoglobin 31.8 pg (28.0-33.3); Mean Corpuscular Volume 86.7 fL (83.0-100.0); Mean Platelet Volume 10.2 fL (9.4-12.4); Monocytes % 8.8 %; Neutrophils # 18.6 K/mcL (1.6-8.9); Platelet Count 168 K/mcL (140-400); Red Blood Count 3.46 M/mcL (4.19-5.50); Segmented Neutrophils % 83.5 %; White Blood Count 22.3 K/mcL (4.3-11.1)
[2021-03-26 08:47] LABS: Prothrombin Time 11.8 Seconds (9.4-12.1)
[2021-03-26 08:49] LABS: Activated Partial Thrombo Time 25.4 Seconds (26.0-36.0)
[2021-03-26 08:58] LABS: Alanine Aminotransferase 19 Units/L (7-52); Albumin 4.4 g/dL (3.5-5.7); Albumin/Globulin Ratio 1.5 (1.1-2.2); Alkaline Phosphatase 86 Units/L (34-104); Aspartate Amino Transferase 23 Units/L (13-39); BUN/Creatinine Ratio 11 (6-26); Bilirubin,Direct 0.3 mg/dL (0.0-0.2); Bilirubin,Indirect 1.1 mg/dL (0.0-1.0); Bilirubin,Total 1.4 mg/dL (0.3-1.0); Blood Urea Nitrogen 13 mg/dL (8-23); Carbon Dioxide 23 mEq/L (23-29); Chloride 89 mEq/L (98-107); Ethanol < 10 mg/dL (Less than 10); Globulin 2.9 g/dL (2.4-3.5); Glucose 215 mg/dL (70-105); Osmolality,Calculated 269 (280-300); Potassium 3.4 mEq/L (3.5-5.1); Sodium 126 mEq/L (136-145); Total Protein 7.3 g/dL (6.4-8.9); Troponin I 0.03 ng/mL (< 0.04); eGFR For African Americans > 60 (> 60); eGFR For Non-African Americans 58 (> 60)
[2021-03-26 09:45] LABS: Bilirubin,Urine Negative (Negative); Blood,Urine Moderate (Negative); Clarity,Urine Clear (Clear); Color,Urine Yellow (Yellow); Glucose,Urine (UA) 250 mg/dL (Normal); Ketones,Urine 40 mg/dL (Negative); Leukocyte Esterase,Urine Negative (Negative); Nitrite,Urine Negative (Negative); Protein,Urine 100 mg/dL (Neg-Trace); Urobilinogen,Urine Normal (Normal)
[2021-03-26] MEDS ORDERED: Azithromycin 500 MG in 0.9 % Sodium Chloride 250 ML IVPB ONE (09:46)
[2021-03-26] MEDS ORDERED: Ondansetron 4 MG/2 ML VIAL IVP PRN ×2 (10:09→14:51)
[2021-03-26] MEDS ORDERED: Acetaminophen 325 MG TABLET PO PRN (10:09)
[2021-03-26] MEDS ORDERED: Naloxone 0.4 MG/ML INJ IVP PRN (10:09)
[2021-03-26] MEDS ORDERED: *HR* LORazepam 2 MG/ML VIAL IVP PRN (10:16)
[2021-03-26] MEDS ORDERED: Ondansetron 4 MG/2 ML VIAL IVP ONE (10:36)
[2021-03-26] MEDS: Budesonide/Formoterol 80/4.5 1 PUFF INH IH SCH ×2 (13:13→21:15)
[2021-03-26] MEDS: 0.9 % Sodium Chloride 1,000 ML IVC SCH (13:17)
[2021-03-26] MEDS: Gabapentin 400 MG CAPSULE PO SCH ×2 (14:25→20:27)
[2021-03-26] MEDS: cloNIDine HCL 0.1 MG TABLET PO SCH ×2 (14:25→20:27)
[2021-03-26] MEDS: Famotidine 20 MG TABLET PO SCH (20:27)
[2021-03-26] MEDS: levETIRAcetam 250 MG TABLET PO SCH (20:27)
[2021-03-27] MEDS: 0.9 % Sodium Chloride 1,000 ML IVC SCH (01:45)
[2021-03-27] MEDS: *HR* Enoxaparin 40 MG/0.4 ML SYRINGE SQ SCH (05:27)
[2021-03-27] MEDS: cloNIDine HCL 0.1 MG TABLET PO SCH ×3 (05:27→21:48)
[2021-03-27 07:39] LABS: Basophils % 0.3 %; Eosinophils % 0.3 %; Hematocrit 25.6 % (37.5-50.1); Immature Granulocytes % 2.8 % (0-4); Lymphocytes # 1.5 K/mcL (0.6-4.6); Lymphocytes % 13.3 %; Mean Corpuscular HGB Conc 35.2 g/dL (31.6-35.5); Mean Corpuscular Hemoglobin 31.3 pg (28.0-33.3); Mean Corpuscular Volume 88.9 fL (83.0-100.0); Mean Platelet Volume 11.2 fL (9.4-12.4); Monocytes # 1.3 K/mcL (0.0-1.3); Monocytes % 11.4 %; Neutrophils # 8.3 K/mcL (1.6-8.9); Platelet Count 132 K/mcL (140-400); Red Blood Count 2.88 M/mcL (4.19-5.50); Red Cell Distribution Width 16.1 % (11.5-14.5); Segmented Neutrophils % 71.9 %; White Blood Count 11.5 K/mcL (4.3-11.1)
[2021-03-27 07:51] LABS: BUN/Creatinine Ratio 7 (6-26); Blood Urea Nitrogen 9 mg/dL (8-23); Calcium 8.3 mg/dL (8.6-10.3); Carbon Dioxide 25 mEq/L (23-29); Chloride 97 mEq/L (98-107); Glucose 98 mg/dL (70-105); Magnesium 2.1 mg/dL (1.6-2.6); Osmolality,Calculated 269 (280-300); Potassium 3.4 mEq/L (3.5-5.1); Sodium 130 mEq/L (136-145); eGFR For African Americans > 60 (> 60); eGFR For Non-African Americans 56 (> 60)
[2021-03-27] MEDS: Gabapentin 400 MG CAPSULE PO SCH ×3 (08:58→21:48)
[2021-03-27] MEDS: levETIRAcetam 250 MG TABLET PO SCH ×2 (08:58→21:48)
[2021-03-27] MEDS: Folic Acid 1 MG TABLET PO SCH (08:58)
[2021-03-27] MEDS: Thiamine (B-1) 100 MG TABLET PO SCH (08:59)
[2021-03-27] MEDS: cefTRIAXone 1,000 MG in Water for inj. (sterile) 10 ML IVP SCH (08:59)
[2021-03-27] MEDS: Azithromycin 500 MG in 0.9 % Sodium Chloride 250 ML IVPB SCH (08:59)
[2021-03-27] MEDS: Budesonide/Formoterol 80/4.5 1 PUFF INH IH SCH ×2 (09:53→20:29)
[2021-03-27] MEDS: Famotidine 20 MG TABLET PO SCH (21:48)
[2021-03-28] MEDS: *HR* Enoxaparin 40 MG/0.4 ML SYRINGE SQ SCH (04:47)
[2021-03-28] MEDS: cloNIDine HCL 0.1 MG TABLET PO SCH (04:47)
[2021-03-28 07:58] LABS: Hematocrit 22.1 % (37.5-50.1); Hemoglobin 7.8 g/dL (12.9-16.9); Mean Corpuscular HGB Conc 35.3 g/dL (31.6-35.5); Mean Corpuscular Hemoglobin 31.7 pg (28.0-33.3); Mean Corpuscular Volume 89.8 fL (83.0-100.0); Mean Platelet Volume 10.5 fL (9.4-12.4); Platelet Count 106 K/mcL (140-400); Red Blood Count 2.46 M/mcL (4.19-5.50); Red Cell Distribution Width 16.1 % (11.5-14.5); White Blood Count 9.4 K/mcL (4.3-11.1)
[2021-03-28 08:10] LABS: Calcium 8.1 mg/dL (8.6-10.3); Potassium 3.9 mEq/L (3.5-5.1)
[2021-03-28] MEDS: cefTRIAXone 1,000 MG in Water for inj. (sterile) 10 ML IVP SCH (09:45)
[2021-03-28] MEDS: Azithromycin 500 MG in 0.9 % Sodium Chloride 250 ML IVPB SCH (09:45)
[2021-03-28] MEDS: Thiamine (B-1) 100 MG TABLET PO SCH (09:48)
[2021-03-28] MEDS: levETIRAcetam 250 MG TABLET PO SCH (09:48)
[2021-03-28] MEDS: Folic Acid 1 MG TABLET PO SCH (09:48)
[2021-03-28] MEDS: Gabapentin 400 MG CAPSULE PO SCH (09:48)
[2021-03-28] MEDS: Budesonide/Formoterol 80/4.5 1 PUFF INH IH SCH (10:09)
[2021-03-28 10:52] VITALS: BP 116/63
[2021-03-28] MEDS ORDERED: Famotidine 20 MG TABLET PO SCH (21:00)
[2021-03-29] MEDS ORDERED: *HR* Enoxaparin 30 MG/0.3 ML SYRINGE SQ SCH (06:00)
== END 2021-03-28 11:41 | disposition home or self-care (01) | DRG 194 ==
LOC: EMEROOPIK 08:03 → INPPIK 08:03
PROVIDERS: ADMIT Family Medicine; ATTEND Family Medicine

== ENCOUNTER 2021-08-03 10:41 | Inpatient (IN) ==
[2021-08-03] MEDS ORDERED: Ipratropium/Albuterol Neb 3 ML IH ONE (10:44)
[2021-08-03] MEDS ORDERED: Azithromycin 500 MG in 0.9 % Sodium Chloride 250 ML IVPB ONE (11:05)
[2021-08-03] MEDS ORDERED: cefTRIAXone 2,000 MG in 0.9 % Sodium Chloride Mini Bag 100 ML IVPB ONE (11:05)
[2021-08-03] MEDS ORDERED: methylPREDNISolone 125 MG/2 ML VIAL IVP ONE (11:05)
[2021-08-03 11:11] LABS: Basophils # 0.1 K/mcL (0.0-0.2); Basophils % 0.4 %; Hematocrit 27.6 % (37.5-50.1); Hemoglobin 9.6 g/dL (12.9-16.9); Immature Granulocytes % 3.3 % (0-4); Lymphocytes # 1.2 K/mcL (0.6-4.6); Lymphocytes % 5.3 %; Mean Corpuscular HGB Conc 34.8 g/dL (31.6-35.5); Mean Platelet Volume 10.2 fL (9.4-12.4); Monocytes # 2.3 K/mcL (0.0-1.3); Monocytes % 10.3 %; Platelet Count 182 K/mcL (140-400); Red Cell Distribution Width 16.7 % (11.5-14.5); Segmented Neutrophils % 80.7 %; White Blood Count 22.1 K/mcL (4.3-11.1)
[2021-08-03 11:13] LABS: Neutrophils # 17.8 K/mcL (1.6-8.9)
[2021-08-03 11:20] LABS: INR 1.1; Prothrombin Time 12.7 Seconds (9.4-12.1)
[2021-08-03 11:31] LABS: Alanine Aminotransferase 12 Units/L (7-52); Albumin 3.9 g/dL (3.5-5.7); Albumin/Globulin Ratio 1.5 (1.1-2.2); Alkaline Phosphatase 74 Units/L (34-104); Aspartate Amino Transferase 13 Units/L (13-39); BUN/Creatinine Ratio 14 (6-26); Bilirubin,Direct 0.3 mg/dL (0.0-0.2); Bilirubin,Indirect 1.1 mg/dL (0.0-1.0); Bilirubin,Total 1.4 mg/dL (0.3-1.0); Blood Urea Nitrogen 15 mg/dL (8-23); Calcium 8.5 mg/dL (8.6-10.3); Carbon Dioxide 23 mEq/L (23-29); Chloride 94 mEq/L (98-107); Globulin 2.6 g/dL (2.4-3.5); Glucose 148 mg/dL (70-105); Osmolality,Calculated 266 (280-300); Potassium 3.9 mEq/L (3.5-5.1); Sodium 126 mEq/L (136-145); Total Protein 6.5 g/dL (6.4-8.9); eGFR For African Americans > 60 (> 60); eGFR For Non-African Americans > 60 (> 60)
[2021-08-03 11:32] LABS: Troponin I < 0.03 ng/mL (< 0.04)
[2021-08-03] MEDS ORDERED: 0.9 % Sodium Chloride 1,000 ML IVC SCH (11:45)
[2021-08-03] MEDS ORDERED: Ondansetron 4 MG/2 ML VIAL IVP ONE (12:13)
[2021-08-03] MEDS ORDERED: MOM Conc 10 ML UD.LIQ PO PRN (14:05)
[2021-08-03] MEDS ORDERED: Naloxone 0.4 MG/ML INJ IVP PRN (14:05)
[2021-08-03] MEDS ORDERED: Acetaminophen 325 MG TABLET PO PRN (14:05)
[2021-08-03] MEDS ORDERED: Ondansetron 4 MG/2 ML VIAL IVP PRN (14:05)
[2021-08-03] MEDS ORDERED: *HR* LORazepam 2 MG/ML VIAL IVP PRN (14:53)
[2021-08-03] MEDS: cloNIDine HCL 0.1 MG TABLET PO SCH ×2 (15:21→23:53)
[2021-08-03] MEDS: Gabapentin 400 MG CAPSULE PO SCH ×2 (15:21→21:22)
[2021-08-03 15:28] LABS: Amylase 69 Units/L (29-103); Ethanol < 10 mg/dL (Less than 10); Lipase 32 Units/L (11-82)
[2021-08-03] MEDS: Ipratropium/Albuterol Neb 3 ML IH SCH ×2 (15:36→21:53)
[2021-08-03] MEDS: MethylPREDNISolone 40 MG/ML VIAL IVP SCH ×2 (16:15→23:53)
[2021-08-03 18:19] LABS: Adenovirus Not Detected (Not Detect); Bordetella Pertussis Not Detected (Not Detect); Chlamydophila pneumoniae Not Detected (Not Detect); Coronavirus 229E Not Detected (Not Detect); Coronavirus HKU1 Not Detected (Not Detect); Coronavirus NL63 Not Detected (Not Detect); Coronavirus OC43 Not Detected (Not Detect); Human Metapneumovirus Not Detected (Not Detect); Human Rhinovirus/Enterovirus Not Detected (Not Detect); Influenza A Subtype 2009 H1 Not Detected (Not Detect); Influenza B Not Detected (Not Detect); Mycoplasma pneumoniae Not Detected (Not Detect); Parainfluenza Virus 1 Not Detected (Not Detect); Parainfluenza Virus 2 Not Detected (Not Detect); Parainfluenza Virus 3 Not Detected (Not Detect); Parainfluenza Virus 4 Not Detected (Not Detect); Respiratory Syncytial Virus Not Detected (Not Detect); SARS-CoV-2 Not Detected (Not Detect)
[2021-08-03] MEDS: levETIRAcetam 250 MG TABLET PO SCH (21:22)
[2021-08-03] MEDS: Famotidine 20 MG TABLET PO SCH (21:22)
[2021-08-03] MEDS: Budesonide/Formoterol 80/4.5 1 PUFF INH IH SCH (21:53)
[2021-08-04] MEDS: Ipratropium/Albuterol Neb 3 ML IH SCH ×4 (04:27→21:18)
[2021-08-04] MEDS: *HR* Enoxaparin 40 MG/0.4 ML SYRINGE SQ SCH (05:32)
[2021-08-04 06:04] LABS: Basophils # 0.1 K/mcL (0.0-0.2); Basophils % 0.4 %; Eosinophils # 0.1 K/mcL (0.0-0.6); Eosinophils % 0.5 %; Hematocrit 25.1 % (37.5-50.1); Hemoglobin 8.4 g/dL (12.9-16.9); Immature Granulocytes % 2.3 % (0-4); Lymphocytes # 0.6 K/mcL (0.6-4.6); Lymphocytes % 2.7 %; Mean Corpuscular HGB Conc 33.5 g/dL (31.6-35.5); Mean Corpuscular Hemoglobin 31.7 pg (28.0-33.3); Mean Corpuscular Volume 94.7 fL (83.0-100.0); Mean Platelet Volume 11.3 fL (9.4-12.4); Monocytes # 0.7 K/mcL (0.0-1.3); Monocytes % 3.3 %; Platelet Count 162 K/mcL (140-400); Red Blood Count 2.65 M/mcL (4.19-5.50); Red Cell Distribution Width 16.9 % (11.5-14.5); Segmented Neutrophils % 90.8 %; White Blood Count 20.9 K/mcL (4.3-11.1)
[2021-08-04 06:25] LABS: BUN/Creatinine Ratio 16 (6-26); Blood Urea Nitrogen 21 mg/dL (8-23); Calcium 8.3 mg/dL (8.6-10.3); Carbon Dioxide 23 mEq/L (23-29); Chloride 96 mEq/L (98-107); Glucose 157 mg/dL (70-105); Osmolality,Calculated 272 (280-300); Sodium 128 mEq/L (136-145); eGFR For African Americans > 60 (> 60); eGFR For Non-African Americans 52 (> 60)
[2021-08-04] MEDS: levETIRAcetam 250 MG TABLET PO SCH ×2 (06:50→17:19)
[2021-08-04] MEDS: Folic Acid 1 MG TABLET PO SCH (08:16)
[2021-08-04] MEDS: Gabapentin 400 MG CAPSULE PO SCH ×3 (08:16→20:10)
[2021-08-04] MEDS: Thiamine (B-1) 100 MG TABLET PO SCH (08:16)
[2021-08-04] MEDS: cloNIDine HCL 0.1 MG TABLET PO SCH ×2 (08:16→16:29)
[2021-08-04] MEDS: MethylPREDNISolone 40 MG/ML VIAL IVP SCH ×2 (08:17→20:08)
[2021-08-04] MEDS: Budesonide/Formoterol 80/4.5 1 PUFF INH IH SCH ×2 (09:35→21:18)
[2021-08-04] MEDS ORDERED: *HR* LORazepam 2 MG/ML VIAL IVP PRN (13:54)
[2021-08-04] MEDS ORDERED: Azithromycin 500 MG in 0.9 % Sodium Chloride 250 ML IVPB SCH (15:00)
[2021-08-04] MEDS ORDERED: MethylPREDNISolone 40 MG/ML VIAL IVP SCH (15:30)
[2021-08-04] MEDS ORDERED: *HR* LORazepam 1 MG TABLET PO ONE (16:07)
[2021-08-04] MEDS: 0.9 % Sodium Chloride 1,000 ML IVC SCH (16:17)
[2021-08-04 16:23] LABS: Bilirubin,Urine Negative (Negative); Blood,Urine Negative (Negative); Clarity,Urine Clear (Clear); Color,Urine Yellow (Yellow); Glucose,Urine (UA) Normal (Normal); Ketones,Urine Negative (Negative); Leukocyte Esterase,Urine Negative (Negative); Nitrite,Urine Negative (Negative); PH,Urine 5.5 pH Units (5.0-8.0); Protein,Urine 30 mg/dL (Neg-Trace); Specific Gravity,Urine 1.025 (1.010-1.025); Urobilinogen,Urine Normal (Normal)
[2021-08-04 16:31] LABS: Hyaline Casts,Urine Few per lpf (None Seen); Mucus,Urine Few per lpf (None-Few); RBC,Urine 0-3 per hpf (0-3); Squamous Epithelial Cell,Urine Few per hpf (None-Few)
[2021-08-04] MEDS ORDERED: levETIRAcetam 250 MG TABLET PO SCH (18:00)
[2021-08-04] MEDS: Famotidine 20 MG TABLET PO SCH (20:08)
[2021-08-05] MEDS: cloNIDine HCL 0.1 MG TABLET PO SCH ×2 (00:35→09:59)
[2021-08-05] MEDS: Ipratropium/Albuterol Neb 3 ML IH SCH ×2 (04:39→11:28)
[2021-08-05] MEDS: levETIRAcetam 250 MG TABLET PO SCH (05:36)
[2021-08-05] MEDS: 0.9 % Sodium Chloride 1,000 ML IVC SCH (05:37)
[2021-08-05] MEDS: *HR* Enoxaparin 40 MG/0.4 ML SYRINGE SQ SCH (05:38)
[2021-08-05 06:21] LABS: Basophils % 0.2 %; Hematocrit 19.6 % (37.5-50.1); Hemoglobin 6.6 g/dL (12.9-16.9); Immature Granulocytes % 2.9 % (0-4); Lymphocytes # 0.4 K/mcL (0.6-4.6); Lymphocytes % 3.2 %; Mean Corpuscular HGB Conc 33.7 g/dL (31.6-35.5); Mean Corpuscular Hemoglobin 31.7 pg (28.0-33.3); Mean Corpuscular Volume 94.2 fL (83.0-100.0); Mean Platelet Volume 12.4 fL (9.4-12.4); Monocytes # 0.5 K/mcL (0.0-1.3); Monocytes % 3.5 %; Neutrophils # 11.7 K/mcL (1.6-8.9); Platelet Count 139 K/mcL (140-400); Red Blood Count 2.08 M/mcL (4.19-5.50); Red Cell Distribution Width 16.6 % (11.5-14.5); Segmented Neutrophils % 90.2 %
[2021-08-05 06:42] LABS: Calcium 7.9 mg/dL (8.6-10.3); Potassium 4.2 mEq/L (3.5-5.1)
[2021-08-05] MEDS: Gabapentin 400 MG CAPSULE PO SCH (09:59)
[2021-08-05] MEDS: Folic Acid 1 MG TABLET PO SCH (09:59)
[2021-08-05] MEDS: Thiamine (B-1) 100 MG TABLET PO SCH (09:59)
[2021-08-05] MEDS: MethylPREDNISolone 40 MG/ML VIAL IVP SCH (10:00)
[2021-08-05 11:06] VITALS: BP 137/70; PULSE 90; TEMP 97.9
[2021-08-05] MEDS: Budesonide/Formoterol 80/4.5 1 PUFF INH IH SCH (11:28)
[2021-08-05 12:50] VITALS: RESP 16; O2SAT 97
== END 2021-08-05 04:00 | disposition home or self-care (01) | DRG 178 ==
LOC: INPPIK 10:41 → EMEROOPIK 10:41 → INPPIK 14:35
PROVIDERS: ADMIT Family Medicine; ATTEND Family Medicine